=== PATIENT | male | born 1940 | race Caucasian/White ===

== ENCOUNTER 2016-11-01 04:35 | Emergency (ER) | payer MEDICARE, OTHER ==
--- NOTE | 2016-11-01 05:03 | PDOC ---
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 Patient states his last bowel movement was 5 days ago and was dark in color. He reports taking pepto bismol with no relief of present symptoms. Patient states he recently ate cereal. Denies similar symptoms in the past. Denies abdominal pain, nausea or vomiting. Denies chest pain or shortness of breath. Denies fevers or chills. Denies any other symptoms. <Prakash Lawrence - Last Filed: 11/01/16 05:29> <Chuy Grimes - Last Filed: 11/04/16 10:38> - General Stated Complaint: CONSTIPATED Time Seen by Provider: 11/01/16 05:02 Past History <Prakash Lawrence - Last Filed: 11/01/16 05:29> - Past Medical History Asthma: Yes Disorders: Yes (BPH) HTN: Yes - Surgical History Orthopedic Surgery: Yes (left knee sx at 6 mos old) - Psycho/Social/Smoking Cessation Hx Suicidal Ideation: No Smoking Status: No Smoking History: Former smoker Have you smoked in the past 12 months: No Number of Cigarettes Smoked Daily: 0 If you are a former smoker, when did you quit?: 7.5 years ago Hx Alcohol Use: No Drug/Substance Use Hx: Yes (marijuana, cocaine- last use many years ago) Substance Use Type: Cocaine, Marijuana Hx Substance Use Treatment: No <Chuy Grimes - Last Filed: 11/04/16 10:38> - Past Medical History Allergies/Adverse Reactions: Allergies Allergy/AdvReac Type Severity Reaction Status Date / Time No Known Allergies Allergy Verified 11/01/16 05:19 Home Medications: Ambulatory Orders Amlodipine Besylate [Norvasc -] 2.5 mg PO DAILY 04/22/14 Aspirin Coated [Ecotrin -] 81 mg PO DAILY 04/22/14 Enalapril Maleate [Vasotec -] 10 mg PO BID 04/22/14 Finasteride [Proscar -] 5 mg PO DAILY 04/22/14 Hydrochlorothiazide [Hctz -] 50 mg PO DAILY 04/22/14 Atorvastatin Calcium [Lipitor] 10 mg PO HS 11/01/16 Ranitidine [Zantac -] 150 mg PO BID 11/01/16 Sennosides [Ex-Lax] 15 mg PO ONCE 11/01/16 Tamsulosin HCl [Flomax] 0.4 mg PO DAILY 11/01/16 Review of Systems - Review of Systems Able to Perform ROS?: Yes Comments:: 11/01/16 05:29 GENERAL/CONSTITUTIONAL: No fever or chills. No weakness. HEAD, EYES, EARS, NOSE AND THROAT: No change in vision. No ear pain or discharge. No sore throat. CARDIOVASCULAR: No chest pain or shortness of breath. RESPIRATORY: No cough, wheezing, or hemoptysis. GASTROINTESTINAL: + constipation No nausea, vomiting, diarrhea. GENITOURINARY: No dysuria, frequency, or change in urination. MUSCULOSKELETAL: No joint or muscle swelling or pain. No neck or back pain. SKIN: No rash NEUROLOGIC: No headache, vertigo, loss of consciousness, or change in strength/ sensation. ENDOCRINE: No increased thirst. No abnormal weight change. HEMATOLOGIC/LYMPHATIC: No anemia, easy bleeding, or history of blood clots. ALLERGIC/IMMUNOLOGIC: No hives or skin allergy. All Other Systems: Reviewed and Negative <Prakash Lawrence - Last Filed: 11/01/16 05:29> *Physical Exam - Vital Signs Last Vital Signs Temp Pulse Resp BP Pulse Ox 97.7 F 77 20 101/54 99 11/01/16 05:21 11/01/16 05:21 11/01/16 05:21 11/01/16 05:21 11/01/16 05:21 - Physical Exam Comments: 11/01/16 05:30 GENERAL: + obese, debilitated. Awake, alert, and fully oriented, in no acute distress HEAD: No signs of trauma EYES: PERRLA, EOMI, sclera anicteric, conjunctiva clear ENT: Auricles normal inspection, hearing grossly normal, nares patent, oropharynx clear without exudates. Moist mucosa NECK: Normal ROM, supple, no lymphadenopathy, JVD, or masses LUNGS: Breath sounds equal, clear to auscultation bilaterally. No wheezes, and no crackles HEART: Regular rate and rhythm, normal S1 and S2, no murmurs, rubs or gallops ABDOMEN: Soft, nontender, normoactive bowel sounds. No guarding, no rebound. No masses EXTREMITIES: Normal range of motion, no edema. No clubbing or cyanosis. No cords, erythema, or tenderness NEUROLOGICAL: Normal speech SKIN: Warm, Dry, normal turgor, no rashes or lesions noted. <Prakash Lawrence - Last Filed: 11/01/16 05:29> ED Treatment Course - LABORATORY CBC & Chemistry Diagram: 11/01/16 06:00 11/01/16 06:00 <Chuy Grimes - Last Filed: 11/04/16 10:38> *DC/Admit/Observation/Transfer - Attestations Scribe Attestion: 11/01/16 05:30 Documentation prepared by Prakash Lawrence, acting as medical economics consultant for Chuy Grimes MD <Prakash Lawrence - Last Filed: 11/01/16 05:29> - Attestations Physician Attestion: 11/01/16 05:02 I, Dr. Chuy Grimes, attest that this document has been prepared under my direction and personally reviewed by me in its entirety. I further attest, that it accurately reflects all work, treatment, procedures and medical decision -making performed by me. <Chuy Grimes - Last Filed: 11/04/16 10:38> Diagnosis at time of Disposition: Constipation Qualifiers: Constipation type: unspecified constipation type Qualified Code(s): K59.00 - Constipation, unspecified - Discharge Dispostion Disposition: HOME Condition at time of disposition: Good - Referrals Referrals: Paras Roche [Primary Care Provider] - - Patient Instructions Printed Discharge Instructions: DI for Constipation Additional Instructions: Your kidney function is getting worse. You must follow up with your primary care doctor, and bring the lab work with you. Return immediately to the ED for severe abdominal pain, nausea and vomiting, Pain with fever, if you are unable to urinate.
[2016-11-01 05:23] VITALS: BMI 31.8
[2016-11-01 06:26] LABS: INR 1.08 (0.82-1.09); PROTHROMBIN TIME (PATIENT) 11.9 SEC (9.98-11.88)
[2016-11-01 06:36] LABS: ALK PHOS 68 U/L (45-117); ANION GAP 8 (8-16); BILIRUBIN,TOTAL 0.7 mg/dL (0.2-1.0); CALCIUM 9.4 mg/dL (8.5-10.1); CO2 28 mmol/L (21-32); CREATININE 1.9 mg/dL (0.7-1.3); GLUCOSE,RANDOM 129 mg/dL (74-106); SGOT/AST 21 U/L (15-37); SGPT/ALT 35 U/L (12-78); TOT PROT 7.5 g/dl (6.4-8.2)
[2016-11-01 07:28] LABS: BASOPHIL 0.3 % (0-2.0); EOSINOPHIL 1.2 % (0-4.5); MCH 30.9 pg (25.7-33.7); MCHC 34.3 g/dl (32.0-35.9); MEAN CELL VOLUME 89.9 fl (80-96); MEAN PLT VOLUME 7.9 fl (7.5-11.1); NEUTROPHILS 71.4 % (42.8-82.8); PLATELET COUNT 220 K/MM3 (134-434); RDW 14.1 % (11.9-15.9); WHITE BLOOD COUNT 7.8 K/mm3 (4.0-10.0)
--- NOTE | 2016-11-01 08:33 | PDOC ---
*Physical Exam - Vital Signs Last Vital Signs Temp Pulse Resp BP Pulse Ox 98 F 66 16 115/71 97 11/01/16 07:30 11/01/16 07:30 11/01/16 07:30 11/01/16 07:30 11/01/16 07:30 ED Treatment Course - LABORATORY CBC & Chemistry Diagram: 11/01/16 06:00 11/01/16 06:00 - ADDITIONAL ORDERS Additional order review: Laboratory Results 11/01/16 11/01/16 06:00 06:00 INR 1.08 Sodium 139 Potassium 4.0 Chloride 103 Carbon Dioxide 28 Anion Gap 8 BUN 30 H D Creatinine 1.9 H D Creat Clearance w eGFR 34.55 Random Glucose 129 H Calcium 9.4 Total Bilirubin 0.7 D AST 21 ALT 35 D Alkaline Phosphatase 68 Total Protein 7.5 Albumin 4.0 Lipase 271 11/01/16 06:00 RBC 4.78 MCV 89.9 MCHC 34.3 RDW 14.1 MPV 7.9 Neutrophils % 71.4 Lymphocytes % 18.3 D Monocytes % 8.8 Eosinophils % 1.2 Basophils % 0.3 Medical Decision Making - Medical Decision Making 11/01/16 08:32 Patient signed out to me by Dr. Grimes as constipation with normal KUB pending labs. Patient had a large bowel movement and feels greatly improved and is asking to go home. Labs show elevation in Cr from 1.4 to 1.9. Patient will call PMD tomorrow and will follow up within one week. *DC/Admit/Observation/Transfer Diagnosis at time of Disposition: Constipation Qualifiers: Constipation type: unspecified constipation type Qualified Code(s): K59.00 - Constipation, unspecified - Discharge Dispostion Disposition: HOME Condition at time of disposition: Good - Referrals Referrals: Paras Roche [Primary Care Provider] - - Patient Instructions Printed Discharge Instructions: DI for Constipation Additional Instructions: Your kidney function is getting worse. You must follow up with your primary care doctor, and bring the lab work with you. Return immediately to the ED for severe abdominal pain, nausea and vomiting, Pain with fever, if you are unable to urinate. - Post Discharge Activity
[2016-11-01 09:11] LABS: URINE APPEARANCE CLEAR; URINE BILIRUBIN NEGATIVE (NEGATIVE); URINE BLOOD NEGATIVE (NEGATIVE); URINE COLOR LTYELLOW; URINE GLUCOSE (UA) NEGATIVE (NEGATIVE); URINE KETONE NEGATIVE (NEGATIVE); URINE LEUK ESTERASE NEGATIVE (NEGATIVE); URINE NITRITE NEGATIVE (NEGATIVE); URINE PROTEIN NEGATIVE (NEGATIVE); URINE UROBILINOGEN NEGATIVE E.U./dl (0.2-1.0)
[2016-11-01 09:33] VITALS: BP 117/71; PULSE 69; TEMP 98.1
== END 2016-11-01 09:35 | disposition home or self-care (01) ==
LOC: JER 04:35
DX: K59.00 Constipation, unspecified (principal); I10 Essential (primary) hypertension; N40.0 Benign prostatic hyperplasia without lower urinary tract symptoms; J45.909 Unspecified asthma, uncomplicated; Z86.73 Personal history of transient ischemic attack (TIA), and cerebral infarction without residual deficits
CPT/HCPCS: 36415; 71020-TC; 74020-TC; 80053; 81003; 83690; 85025; 85610; 99283-25